=== PATIENT | female | born 1985 | race Caucasian/White ===

== ENCOUNTER 2025-03-17 10:39 | Outpatient (REF) | payer MEDICAID, SELFPAY ==
--- OUTSIDE RECORDS SUMMARY | 2025-03-17 12:09 | XMS_ITS | Clinical Summary ---
Author Organization [employer] Address [address] [facility] [address] [place] [address] Care Team Providers Care Hand Coke Drawer Name Role Phone Loan Cabrera MD Primary Care Provider + Allergies Active Allergy Reactions Criticality Noted Date Comments Penicillin G 08/01/2023 Medications * This document contains information received from the source organization and may not represent a complete record from that organization. Vit-Fe Fumarate-FA ( Vitamins) 27-0.8 MG tablet Take 1 tablet by mouth Once per day. 90 each 3 01/13/2025 Active Active Problems Problem Noted Date Diagnosed Date Cellulitis 01/13/2025 Assessment & Plan (01/13/2025 4:20 PM EDT): On both breasts, see mastitis Mastitis 01/13/2025 Assessment & Plan (01/13/2025 4:20 PM EDT): On both breasts, mostly on the right side. Rx doxycycline x 10 days, mammogram to be done after she completes antibiotics Follow-up with me in 4 weeks Encounter for preventative adult health care exa mination 01/13/2025 Assessment & Plan (01/13/2025 4:25 PM EDT): Discussed with patient re increase fresh fruit and vegetable intake. Counseled re moderate exercise as tolerated, up to 20min/d Patient feels safe at home. PAP smear: Will schedule I with me after next appointment. Mammogram: Overdue, will schedule screening mammogram after she is treated for mastitis. Eye exam: Overdue, will refer CRC screen: Start at age 45 Lipids/FBS: TBO Vaccinations: Declined Td, order hepatitis booster and follow-up at next appointment Dental visit: Given information about dental clinics in the area Adjustment disorder with mix ed disturbance of emotions and conduct in remission 01/13/2025 Assessment & Plan (01/13/2025 4:21 PM EDT): After her mother's and sister's , doing well now. We discussed about services here and she will reach out as needed She feels safe at home for now Cigarette nicotine dependence without complicati on 01/13/2025 Assessment & Plan (01/13/2025 4:21 PM EDT): Advised to quit smoking, declined nicotine replacement therapy Social anxiety disorder 12/06/2023 Assessment & Plan (12/07/2023 11:29 AM EDT): During IBH Consult Linette presenting with depressed mood, loss of interests/pleasure , changes in sleep difficulty falling asleep, psychomotor retardation, trouble concentrating, thoughts of worthlessness or guilt, fatigue/loss of energy, inappropriate guilt , hopelessness, worthlessness , difficulty concentrating and excessive worry/anxiety, difficulty controlling worry, restless/keyed up/On edge, difficulty concentrating/Mind going blank , and sleep disturbance difficulty falling asleep, persistent anxiety about specific social situations, avoidance of family gathering due to intense fear. Sxs interfere with interpersonal relationships; for a period of 18+ mo, for all symptoms in the context of and family issues. Linette reported symptoms started in 2019 when her mom . She reports struggling with anxiety on and off since she was young. Pt is currently on wait list for PCP and would like to start medication to treat sxs. PLAN: (check all that apply) New/Additional Services needed Off-site services for Behavioral Health Integration Plan External OP therapy referral Patient Self Plan Patient to utilize skills provided in intervention , Patient [facility] needed, Patient to engage in OP therapy , and Patient to reach out to [facility] as needed Moderate episode of recurrent major depressive d isorder 12/06/2023 Assessment & Plan (12/07/2023 11:29 AM EDT): During IBH Consult Linette presenting with depressed mood, loss of interests/pleasure , changes in sleep difficulty falling asleep, psychomotor retardation, trouble concentrating, thoughts of worthlessness or guilt, fatigue/loss of energy, inappropriate guilt , hopelessness, worthlessness , difficulty concentrating and excessive worry/anxiety, difficulty controlling worry, restless/keyed up/On edge, difficulty concentrating/Mind going blank , and sleep disturbance difficulty falling asleep, persistent anxiety about specific social situations, avoidance of family gathering due to intense fear. Sxs interfere with interpersonal relationships; for a period of 18+ mo, for all symptoms in the context of and family issues. Linette reported symptoms started in 2019 when her mom . She reports struggling with anxiety on and off since she was young. Pt is currently on wait list for PCP and would like to start medication to treat sxs. PLAN: (check all that apply) New/Additional Services needed Off-site services for Behavioral Health Integration Plan External OP therapy referral Patient Self Plan Patient to utilize skills provided in intervention , Patient to reach out to [facility] team as needed, Patient to engage in OP therapy , and Patient to reach out to [facility] as needed Encounters Date Type Department Care Team Description 02/24/2025 Telephone [facility] [address] [place] [address] Loan Cabrera MD Labs (I called the patient to inform her that the Physical & PPD request form from [facility], cannot be completed because she needs to have [facility] labs. She stated that she will go the [facility] lab on 02/25/25, to have them done.) 01/20/2025 Telephone [facility] [address] [place] [address] Loan Cabrera MD Medication Question 01/13/2025 12:15 PM EDT Office Visit [facility] [address] [place] [address] Loan Cabrera MD Cellulitis of other specified site (Primary Dx); Mastitis; Encounter for preventative adult health care examination; Adjustment disorder with mixed disturbance of emotions and conduct in remission; Cigarette nicotine dependence without complication; Screening mammogram for breast cancer 01/13/2025 Travel 01/13/2025 Telephone [facility] [address] [place] [address] Hardeep Luna MD telephone call 01/12/2025 Telephone [facility] [address] [facility] [place] [address] Loan Cabrera MD CHART PREP 01/06/2025 Patient Outreach [facility] [address] [facility] [place] [address] Hardeep Luna MD Pre-visit Planning ([facility] screening completed on 09/26/24) from Last 3 Months Social History Tobacco Use Types Packs/Day Years Used Date Smoking Tobacco: Every Day Cigarettes 0.5 15 Passive Smoke Exposure: Current Smokeless Tobacco: Never Tobacco Cessation:Ready to Q uit: Not Asked; Counseling Given: Not Answered Alcohol Use Standard Drinks/Week Comments Not Currently 0 (1 standard drink = 0.6 oz pur e alcohol) Depression Answer Date Recorded Patient Health Questionnaire-9 Score 0 01/13/2025 Patient Health Questionnaire-9 Score 0 01/13/2025 Last PHQ-9: Questionnaire Data Not on file 0 01/13/2025 Housing Stability Answer Date Recorded What is your housing situation today? I have rc mcrae 09/26/[address] you li ve. Do you have problems with any of the following? None of the above 09/26/2024 Food Insecurity Answer Date Recorded Within the past 12 months, y ou worried that your food would run out before you got money to buy more: Never True 03/03/2024 Within the past 12 months,th e food you bought just didn't last and you didn't have enough money to get more: Never True Transportation Answer Date Recorded In the past 12 months, has l ack of transportation kept you from medical appts, meetings, work or from getting things needed for daily living? No 03/03/2024 Utilities Answer Date Recorded In the past 12 months, has t he electric, gas, oil or water company threatened to shut off services in your home? No 03/03/2024 Depression Answer Date Recorded Patient Health Questionnaire-2 Score 0 01/13/2025 Internet Access Answer Date Recorded Internet Access Q1 Yes 03/17/2024 Internet Access Q2 Not on file 03/17/2024 Comments No Intention Date Recorded Wants to become (finding) 01/13 Sex and Gender Information Value Date Recorded Sex Assigned at Female 05/15/2022 10:16 AM EDT Legal Sex Female 10:16 AM EDT Gender Identity Female 05/15/2022 10:16 AM EDT Sexual Orientation Choose not to disclose 2021 10:16 AM EDT Last Filed Vital Signs Vital Sign Reading Time Taken Comments Blood Pressure 115/78 01/13/2025 11:50 AM EDT Pulse 67 01/13/2025 11:50 AM EDT Temperature 36.1 C (97 F) 01/13/2025 11:50 AM EDT Respiratory Rate 16 01/13/2025 11:50 AM EDT Oxygen Saturation 98% 01/13/2025 11:50 AM EDT Inhaled Oxygen Concentration - - Weight 75.3 kg (166 lb) 01/13/2025 11:50 AM EDT Height 147.3 cm (4' 10 ) 01/13/2025 11:50 AM EDT Body Mass Index 34.69 01/13/2025 11:50 AM EDT Plan of Treatment Upcoming Encounters Date Type Department Care Team (Late st Contact Info) Description 03/17/2025 1:00 PM EDT Office Visit [facility] [address] [place] [address] Jeni Ma DDS [address] [place] [address] 2025 11:30 AM EDT Office Visit [facility] [address] [place] [address] Loan Cabrera MD [address] [place] [address] Health Maintenance Due Date Last Done Comments Dental Oral Exam 1983 Dental Prophylaxis 1983 Dental X-Ray: Full Mouth 1983 HIV Screening 1983 Lipid Panel 1983 HPV Vaccines (1 - 3-dose series) 1998 Hepatitis C Screening 2001 DTaP/Tdap/Td Vaccines (1 - Tdap) 2002 Hepatitis B Vaccines (1 of 3 - 19+ 3-dose series) 2002 Pneumococcal Vaccine: Pediatrics (0 to 5 Years) and At-Risk Patients (6 to 49) Years (1 of 2 - PCV) 2002 Pap Smear 2004 Cervical Cancer Screening 2013 HPV/Cotest 2013 Mammogram 2023 Dental X-Ray: Bitewings 08/02/2024 08/01/2023 COVID-19 Vaccine (3 - 2024-2 6 season) 2025 09/02/2021, 08/11/2021 Influenza Vaccine (#1) 2025 SDOH Screening 09/26/2025 09/26/2024 Alcohol/Substance Use Screening 01/13/2026 01/13/2025 Depression Screening 01/13/2026 01/13/2025, 01/13/2025 Disability Screening 01/13/2026 01/13/2025 Family Planning (PISQ) 01/13/2026 01/13/2025 Tobacco Screening 01/13/2026 01/13/2025 Zoster Vaccines (1 of 2) 2033 RSV Patients and Patients Aged 60 years or older (1 - 1-dose 75+ series) 2058 HIB Vaccines Aged Out No longer eligi ble based on patient's age to complete this topic Hepatitis A Vaccines Aged Out No long er eligible based on patient's age to complete this topic IPV Vaccines Aged Out No longer eligi ble based on patient's age to complete this topic Meningococcal B Vaccine Aged Out No l onger eligible based on patient's age to complete this topic Meningococcal Vaccine Aged Out No agnieszka morris eligible based on patient's age to complete this topic RSV under 20 months Aged Out No longe r eligible based on patient's age to complete this topic Rotavirus Vaccines Aged Out No longer eligible based on patient's age to complete this topic Procedures Procedure Name Priority Date/Time Associated Diagnosis Comments BITEWING - SINGLE RADIOGRAPHIC IMAGE Routine 08/01/2023 3:30 PM EST Dental abscess from Last 3 Months or Most Recently Relevant to Health Maintenance Insurance [place] [facility] MED[employer] STAND ADULT Care Teams Hand Coke Drawer Relationship Specialty Start Date End Date Loan Cabrera MD [address] [place] [id number] PCP - General Internal Medicine 01/13/25
[2025-03-17 13:20] LABS: MANUAL DIFF FLAG NO
[2025-03-17 13:27] LABS: Hematocrit 34.4 % (37.0-47.0); Hemoglobin 10.8 g/dl (12.0-16.0); Imm Gran Abs Auto 0.04 X10*3/uL (0.00-0.03); Imm Gran Pct Auto 0.4 % (0.0-0.4); Lymphocytes Absolute Auto 3.0 X10*3/uL (1.2-4.9); Mean Corpuscular HGB Conc 31.4 g/dl (31.0-35.0); Mean Corpuscular Hemoglobin 23.1 pg (27.0-33.0); Mean Corpuscular Volume 73.5 fL (80.0-98.0); NRBC Abs Auto 0.000 X10*3/uL (0.0-0.012); NRBC Pct Auto 0.0 /100WBC (0.0-0.2); Platelet Count 364 X10*3/uL (160-400); Red Blood Count 4.68 X10*6/uL (4.20-5.50); White Blood Count 9.9 X10*3/uL (4.8-10.8)
[2025-03-17 13:50] LABS: Hemoglobin A1C 85.4814 umol/L; Total Hemoglobin (HGBA1C) 2769.7432 umol/L
[2025-03-17 14:48] LABS: Alanine Aminotransferase 21 U/L (0-31); Albumin Level 4.3 g/dL (3.5-5.0); Alkaline Phosphatase 65 U/L (39-117); Anion Gap 12 (12-20); Aspartate Amino Transferase 27 U/L (5-31); Blood Urea Nitrogen 14 mg/dL (9-16); Calcium 9.0 mg/dL (8.4-10.2); Carbon Dioxide 23 mmol/L (22-29); Chloride 109 mmol/L (96-108); Cholesterol 139 mg/dL (<200); Estimated Glomerular Filt Rate > 60; HDL Cholesterol 30 mg/dL (>40); Potassium 4.0 mmol/L (3.3-5.1); Sodium 140 mmol/L (135-145); Total Protein 7.5 g/dL (6.5-8.0); Triglycerides 123 mg/dL (<150)
[2025-03-17 15:42] LABS: Reflex LDLD? No
[2025-03-18 08:11] LABS: HBS Num1 0.00 mIU/mL (0-7.99); Hepatitis A Antibody IgM 0.36 Index (0-0.79); ~Hepatitis A Antibody IgM Nonreactive (Nonreactive)
[2025-03-18 08:12] LABS: HBc Num1 0.09 S/CO (0.00-0.79); HBsAGNum1 0.44 S/CO (0.00-0.99); HIV Num 1 0.05 S/CO (0.00-0.99); Hepatitis B Surface Antigen Negative (Negative); ~HepC Num1 0.21 S/CO (0.00-0.79); ~Hepatitis B Surface Antibody NONREACTIVE (Nonreactive); ~Hepatitis C Antibody Nonreactive (Nonreactive)
[2025-03-18 08:44] LABS: Syphilis Screen Nonreactive (Nonreactive)
[2025-03-19 21:19] LABS: TS Negative Control Passed; TS Panel A 0; TS Panel B 3; TS Positive Control Passed; TSpotTB Negative (Negative)
== END 2025-03-17 10:40 | disposition home or self-care (01) ==
LOC: HO.HHCL 10:39
PROVIDERS: PCP Internal Medicine; Visit Provider Internal Medicine
DX: Z00.00 Encounter for general adult medical examination without abnormal findings (principal); F43.25 Adjustment disorder with mixed disturbance of emotions and conduct; L03.818 Cellulitis of other sites; Z11.4 Encounter for screening for human immunodeficiency virus [HIV]; Z11.3 Encounter for screening for infections with a predominantly sexual mode of transmission; Z11.8 Encounter for screening for other infectious and parasitic diseases
CPT/HCPCS: 36415; 80053; 80061; 83036; 83615; 84443; 85025; 86481; 86704; 86706; 86709; 86780; 86803; 87340; 87389